=== PATIENT | male | born 1965 | race Caucasian/White ===

== ENCOUNTER 2022-04-23 12:39 | Emergency (ER) | payer BC, OTHER ==
[2022-04-23 13:01] VITALS: BP 124/63; PULSE 80; RESP 18; TEMP 98.4; BMI 29.0
== END 2022-04-23 15:55 | disposition home or self-care (01) ==
LOC: JER 12:39
DX: U07.1 COVID-19 (principal); R05.1 Acute cough
CPT/HCPCS: 0241U-QW; 99283-25